=== PATIENT | female | born 1990 | race Caucasian/White ===

== ENCOUNTER 2016-09-05 13:55 | Emergency (ER) | payer OTHER ==
[2016-09-05] MEDS ORDERED: SODIUM CHLORIDE 1,000 ML IV STA (14:25)
--- NOTE | 2016-09-05 14:25 | PDOC ---
History of Present Illness - General History Source: Patient Exam Limitations: No Limitations - History of Present Illness Initial Comments: 09/05/16 15:46 The patient is a 25 year old female, with no significant past medical history, who presents to the emergency department with a possible allergic reaction. She reports that she was at the dentist's office and was getting a cleaning, when she got multiple anesthetic injections (articaine) in the lower and upper part of her mouth, for which roughly 1 minute after she started shaking. She notes that the shaking was worsening over a 5 minute period before EMS was activated. She notes that the shaking is intermittent in nature. She also notes that the shaking in her upper extremities has resolved but her lower extremities has persisted. She denies eating anything today. The patient denies chest pain, shortness of breath, headache and dizziness. Denies fever, chills, nausea, vomit, diarrhea and constipation. Denies dysuria, frequency, urgency and hematuria. Allergies: Shellfish, seasonal allergies Past surgical history: None reported Social history: No alcohol, tobacco or drug use reported <Dennis Sevilla - Last Filed: 09/05/16 15:45> - General History Source: Patient Exam Limitations: No Limitations <Soni Freitas - Last Filed: 09/05/16 16:30> - General Chief Complaint: Allergic Reaction Stated Complaint: SHAKING Time Seen by Provider: 09/05/16 14:15 Past History <Dennis Sevilla - Last Filed: 09/05/16 15:45> <Soni Freitas - Last Filed: 09/05/16 16:30> - Past Medical History Allergies/Adverse Reactions: Allergies Allergy/AdvReac Type Severity Reaction Status Date / Time No Known Drug Allergies Allergy Verified 09/05/16 16:13 steri stips Allergy Intermediate Dermatitis Uncoded 09/05/16 14:30 with Bullae seasonal Allergy Uncoded 09/05/16 14:30 shrimp Allergy mouth Uncoded 09/05/16 14:30 becomes itchy and lips swell Home Medications: Ambulatory Orders NK [No Known Home Medication] 09/05/16 Review of Systems - Review of Systems Able to Perform ROS?: Yes Comments:: 09/05/16 15:47 GENERAL/CONSTITUTIONAL: No fever or chills. No weakness. HEAD, EYES, EARS, NOSE AND THROAT: No change in vision. No ear pain or discharge. No sore throat. CARDIOVASCULAR: No chest pain or shortness of breath RESPIRATORY: No cough, wheezing, or hemoptysis. GASTROINTESTINAL: No nausea, vomiting, diarrhea or constipation. GENITOURINARY: No dysuria, frequency, or change in urination. MUSCULOSKELETAL: No joint or muscle swelling or pain. No neck or back pain. SKIN: No rash NEUROLOGIC: No headache, vertigo, loss of consciousness, or change in strength/ sensation. ENDOCRINE: No increased thirst. No abnormal weight change HEMATOLOGIC/LYMPHATIC: No anemia, easy bleeding, or history of blood clots. ALLERGIC/IMMUNOLOGIC: +Lower extremity shaking. No hives or skin allergy. <Dennis Sevilla - Last Filed: 09/05/16 15:45> *Physical Exam - Vital Signs Last Vital Signs Temp Pulse Resp BP Pulse Ox 98.1 F 78 20 133/67 100 09/05/16 14:27 09/05/16 14:27 09/05/16 14:27 09/05/16 14:27 09/05/16 14:27 - Physical Exam Comments: 09/05/16 15:47 GENERAL: Awake, alert, and fully oriented, in no acute distress HEAD: No signs of trauma, normocephalic, atraumatic EYES: PERRLA, EOMI, sclera anicteric, conjunctiva clear ENT: Auricles normal inspection, hearing grossly normal, nares patent, oropharynx clear without exudates. Moist mucosa NECK: Normal ROM, supple, no lymphadenopathy, JVD, or masses LUNGS: No distress, speaks full sentences, clear to auscultation bilaterally HEART: Regular rate and rhythm, normal S1 and S2, no murmurs, rubs or gallops, peripheral pulses normal and equal bilaterally. ABDOMEN: Soft, nontender, normoactive bowel sounds. No guarding, no rebound. No masses EXTREMITIES: Normal inspection, Normal range of motion, no edema. No clubbing or cyanosis. NEUROLOGICAL: (See MDM) SKIN: Warm, Dry, normal turgor, no rashes or lesions noted. <Dennis Sevilla - Last Filed: 09/05/16 15:45> Heart Score/ECG Review #1 ECG reviewed & interpreted by me at: 16:13 General ECG Interpretation: Sinus Rhythm, Normal Rate, Normal Intervals, No acute ischemic changes <Soni Freitas - Last Filed: 09/05/16 16:30> ED Treatment Course - LABORATORY CBC & Chemistry Diagram: 09/05/16 14:25 09/05/16 14:25 - ADDITIONAL ORDERS Additional order review: Laboratory Results 09/05/16 09/05/16 14:25 14:25 Sodium Cancelled Potassium Cancelled Chloride Cancelled Carbon Dioxide Cancelled Anion Gap Cancelled BUN Cancelled Creatinine Cancelled Creat Clearance w eGFR Cancelled Random Glucose Cancelled Calcium Cancelled Total Bilirubin Cancelled AST Cancelled ALT Cancelled Alkaline Phosphatase Cancelled Total Protein Cancelled Albumin Cancelled Serum , Qual Negative 09/05/16 14:25 RBC 5.01 MCV 87.7 MCHC 32.5 RDW 13.8 MPV 9.4 Neutrophils % 50.1 Lymphocytes % 39.6 Monocytes % 4.9 Eosinophils % 4.8 H Basophils % 0.6 <Dennis Sevilla - Last Filed: 09/05/16 15:45> - LABORATORY CBC & Chemistry Diagram: 09/05/16 14:25 09/05/16 15:26 <Soni Freitas - Last Filed: 09/05/16 16:30> Medical Decision Making - Medical Decision Making 09/05/16 14:25 A portion of this note was documented by scribe services under my direction. I have reviewed the details of the note, within reason, and agree with the documentation with the following case summary and management plan written by me. Nursing documentation reviewed and incorporated into medical decision making This is a 25 yo F who presents to the ER with a complaint of shaking She was at the dentist office today She has not had any prior exposures to dental anesthesia No rash, No pruritis No throat swelling No difficult yswallowing No nausea, vomiting, diarrhea No abdominal pain 09/05/16 15:08 Call placed to poison control "Its a local reaction, there is nothing we can tell you to do about that" Spoke with "Mp" at [phone] 09/05/16 15:17 Pt monitored in the ER with no recurrent symptoms 09/05/16 15:25 09/05/16 16:13 CMP pending 09/05/16 16:29 Laboratory Tests 09/05/16 09/05/16 14:25 15:26 WBC 7.7 Hgb 14.3 Hct 43.9 Plt Count 238 Neutrophils % 50.1 Lymphocytes % 39.6 Sodium 142 Potassium 3.8 Chloride 110 H Carbon Dioxide 24 BUN 9 Creatinine 0.7 Random Glucose 71 L 09/05/16 16:29 NO MORE TWITCHING NO COMPLAINTS Pt states she feels better Will discharge to home AVOID ARTECAINE 09/05/16 16:30 <Soni Freitas - Last Filed: 09/05/16 16:30> *DC/Admit/Observation/Transfer - Attestations Scribe Attestion: 09/05/16 15:48 Documentation prepared by Dennis Sevilla, acting as medical records director for Soni Freitas MD <Dennis Sevilla - Last Filed: 09/05/16 15:45> - Discharge Dispostion Admit: No <Soni Freitas - Last Filed: 09/05/16 16:30> Diagnosis at time of Disposition: Adverse drug reaction Qualifiers: Encounter type: initial encounter Qualified Code(s): T88.7XXA - Unspecified adverse effect of drug or medicament, initial encounter - Discharge Dispostion Disposition: HOME Condition at time of disposition: Improved - Referrals Referrals: Ted Dorman MD [Primary Care Provider] - - Patient Instructions Printed Discharge Instructions: DI for Adverse Drug Reaction -- Allergic Additional Instructions: Lucille Thank you for coming in to the ER today I am so sorry that this happened to you in the dentist office Please follow up with bog worker Return to the ER for any recurrence of symptoms Please avoid Artecaine
[2016-09-05 14:30] VITALS: TEMP 98.1; BMI 28.3
[2016-09-05 14:54] LABS: BASOPHIL 0.6 % (0-2.0); EOSINOPHIL 4.8 % (0-4.5); MCH 28.5 pg (25.7-33.7); MCHC 32.5 g/dl (32.0-36.0); MEAN CELL VOLUME 87.7 fl (80-96); MEAN PLT VOLUME 9.4 fl (7.5-11.1); NEUTROPHILS 50.1 % (42.8-82.8); PLATELET COUNT 238 K/MM3 (134-434); RDW 13.8 % (11.6-15.6); WHITE BLOOD COUNT 7.7 K/mm3 (4.0-10.0)
[2016-09-05 16:13] LABS: ALBUMIN 3.7 g/dl (3.4-5.0); ANION GAP 8 (8-16); BILIRUBIN,TOTAL 0.3 mg/dL (0.2-1.0); CALCIUM 8.4 mg/dL (8.5-10.1); CO2 24 mmol/L (21-32); CREATININE 0.7 mg/dL (0.55-1.02); GLUCOSE,RANDOM 71 mg/dL (74-106); SGOT/AST 20 U/L (15-37); SGPT/ALT 18 U/L (12-78); TOT PROT 6.8 g/dl (6.4-8.2)
[2016-09-05 16:14] LABS: ALK PHOS 42 U/L (45-117)
[2016-09-05 16:58] VITALS: BP 126/85; PULSE 89
--- NOTE | 2016-09-05 21:23 | EKG ---
Test Reason : Blood Pressure : / mmHG Vent. Rate : 082 BPM Atrial Rate : 082 BPM P-R Int : 146 ms QRS Dur : 070 ms QT Int : 368 ms P-R-T Axes : 060 084 040 degrees QTc Int : 429 ms NORMAL SINUS RHYTHM NORMAL ECG NO PREVIOUS ECGS AVAILABLE Confirmed by BETTIE DAUGHERTY MD ([id number]) on 09/05/2016 9:22:55 PM Referred By: Confirmed By:BETTIE DAUGHERTY MD
== END 2016-09-05 16:59 | disposition home or self-care (01) ==
LOC: JER 13:55
PROC: 3E0337Z Introduction of Electrolytic and Water Balance Substance into Peripheral Vein, Percutaneous Approach (ICD-10-PCS; principal; 2016-09-05)
DX: R25.8 Other abnormal involuntary movements (principal); T41.3X5A Adverse effect of local anesthetics, initial encounter; Y92.531 Health care provider office as the place of occurrence of the external cause
CPT/HCPCS: 36415; 80053; 84703; 85025; 93005; 93010; 99283-25

== ENCOUNTER 2024-07-20 01:15 | Inpatient (IN) | payer BC ==
[2024-07-20] MEDS: LACTATED RINGERS SOLUTION 1,000 ML/1,000 ML INFUS.BAG IV SCH (14:00)
[2024-07-20 14:27] VITALS: BMI 29.7
[2024-07-20 15:33] LABS: BASO % 0.4 % (0-2.0); EOS % 2.7 % (0-4.5); HEMATOCRIT 37.2 % (32.4-45.2); HEMOGLOBIN 12.4 GM/dL (10.7-15.3); MCH 30.1 pg (25.7-33.7); MCHC 33.4 g/dl (32.0-36.0); MEAN CELL VOLUME 90.1 fl (80-96); MONO % 5.7 % (3.8-10.2); NEUT % 71.2 % (42.8-82.8); PLATELET COUNT 136 10^3/uL (134-434); RBC 4.13 M/mm3 (3.60-5.2); RDW 14.3 % (11.6-15.6); WHITE BLOOD COUNT 9.5 K/mm3 (4.0-10.0)
[2024-07-20 15:39] LABS: INR 0.83 (0.83-1.09); PROTHROMBIN TIME (PATIENT) 9.6 SEC (9.7-13.0)
[2024-07-20 15:42] LABS: ACTIVATED PTT 28.2 SECONDS (25.2-36.5)
[2024-07-20 15:52] LABS: POTASSIUM 4.2 mmol/L (3.5-5.1)
[2024-07-20 15:54] LABS: BLOOD UREA NITROGEN 7.8 mg/dL (7-18); CALCIUM 8.7 mg/dL (8.5-10.1)
[2024-07-20 15:58] LABS: CREATININE 0.5 mg/dL (0.55-1.3)
[2024-07-20] MEDS: DINOPROSTONE 10 MG VAGINAL SUPPOSITORY VG ONE (16:07)
[2024-07-21] MEDS ORDERED: BUTORPHANOL TARTRATE 2 MG/ML VIAL ONE (04:27)
[2024-07-21] MEDS ORDERED: PROMETHAZINE HCL 25 MG/1 ML VIAL ONE (04:27)
[2024-07-21] MEDS: BUTORPHANOL TARTRATE 1 MG/ML VIAL IVPB ONE (05:00)
[2024-07-21] MEDS: PROMETHAZINE HCL 25 MG/1 ML VIAL IVPB PRN (05:00)
[2024-07-21] MEDS ORDERED: OXYTOCIN 30 UNITS in 0.9% NS 30 UNIT/500 ML INFUS.BAG IVPB ONE (05:28)
[2024-07-21] MEDS: OXYTOCIN 30 UNITS in 0.9% NS 30 UNIT/500 ML INFUS.BAG IVPB SCH (05:30)
[2024-07-21] MEDS ORDERED: FENTANYL/BUPIVACAINE/NS/PF - PCEA - 50 ML DISP.SYRIN EP ONE ×4 (08:09→20:12)
[2024-07-21] MEDS: FENTANYL/BUPIVACAINE/NS/PF - PCEA - 50 ML DISP.SYRIN EP SCH (08:35)
[2024-07-21] MEDS ORDERED: NALOXONE HCL 0.4 MG/ML VIAL IVPUSH PRN (09:47)
[2024-07-21] MEDS ORDERED: AMPICILLIN SODIUM 2 GM VIAL ONE (18:02)
[2024-07-21] MEDS: AMPICILLIN - 2 GM in SODIUM CHLORIDE 100 ML IVPB ONE (18:05)
[2024-07-21] MEDS: ELECTROLYTE-148 SOLN 1,000 ML IV SCH (18:07)
[2024-07-21] MEDS ORDERED: AMPICILLIN SODIUM 1 GM VIAL ONE (22:18)
[2024-07-21] MEDS: CITRIC ACID/SODIUM CITRATE 30 ML UNIT-DOSE CUP PO ONE (22:20)
[2024-07-21] MEDS ORDERED: morphine SULFATE/PF 1 MG/2 ML (2cc Syringe - QUVA) ONE (22:36)
[2024-07-21] MEDS ORDERED: LIDO 2%/EPI 1:200000 PRESRVFRE (20 ML SDVIAL) ONE (22:37)
[2024-07-21] MEDS ORDERED: PROPOFOL 20 ML ONE ×2 (22:58)
[2024-07-21] MEDS ORDERED: NITROGLYCERIN 25MG/D5W 250ML 25 MG/250 ML ML IVPB ONE (22:58)
[2024-07-21] MEDS ORDERED: SUCCINYLCHOLINE CHLORIDE 200 MG/10 ML SYRINGE ONE ×2 (23:01→23:04)
[2024-07-21] MEDS: METHYLERGONOVINE MALEATE 0.2 MG/1 ML AMP IM ONE (23:06)
[2024-07-21] MEDS ORDERED: MISOPROSTOL 200 MCG TABLET ONE (23:12)
[2024-07-21] MEDS ORDERED: MAGNESIUM SULFATE 20GM/500ML - 20 GM/500 ML INFUS.BAG IVPB SCH (23:15)
[2024-07-21] MEDS ORDERED: MIDAZOLAM HCL 2 MG/2 ML SINGLE DOSE VIAL ONE (23:18)
[2024-07-21] MEDS ORDERED: PHENYLEPHRINE HCL 10 MG/1 ML SINGLE DOSE VIAL ONE (23:25)
[2024-07-21 23:28] LABS: CORD HCO3 18.9 mmHg (20-29); CORD PCO2 73.7 mmHg (30-78); CORD pH 7.028 (7.14-7.44)
[2024-07-21 23:37] LABS: CORD HCO3 19.8 mmHg (20-29); CORD PCO2 78.8 mmHg (30-78); CORD pH 7.017 (7.14-7.44)
[2024-07-21 23:53] LABS: HEMOGLOBIN 11.9 GM/dL (10.7-15.3)
[2024-07-21 23:57] LABS: HEMATOCRIT 37.1 % (32.4-45.2); MCH 29.6 pg (25.7-33.7); MEAN CELL VOLUME 92.7 fl (80-96); MEAN PLT VOLUME 10.3 fl (7.5-11.1); PLATELET COUNT 139 10^3/uL (134-434); RDW 14.2 % (11.6-15.6); WHITE BLOOD COUNT 22.9 K/mm3 (4.0-10.0)
[2024-07-22] MEDS: MISOPROSTOL 200 MCG TABLET PR ONE (00:11)
[2024-07-22] MEDS ORDERED: ACETAMINOPHEN INJECTION 100 ML ONE ×2 (00:18→07:58)
[2024-07-22 00:22] LABS: POTASSIUM 3.5 mmol/L (3.5-5.1)
[2024-07-22 00:24] LABS: ALBUMIN 2.4 g/dl (3.4-5.0); BLOOD UREA NITROGEN 12.3 mg/dL (7-18); CALCIUM 7.7 mg/dL (8.5-10.1); INR 0.95 (0.83-1.09); PROTHROMBIN TIME (PATIENT) 10.7 SEC (9.7-13.0)
[2024-07-22 00:27] LABS: BILIRUBIN,DIRECT 0.2 mg/dL (0.0-0.2); CREATININE 1.7 mg/dL (0.55-1.3)
[2024-07-22 00:29] LABS: BILIRUBIN,TOTAL 0.4 mg/dL (0.2-1); TOT PROT 5.4 g/dl (6.4-8.2)
[2024-07-22] MEDS ORDERED: OXYTOCIN 20 UNITS in 0.9% NS 20 UNIT/1,000 ML INFUS.BAG IV ONE ×2 (00:35→08:05)
[2024-07-22] MEDS: OXYTOCIN 20 UNITS in 0.9% NS 20 UNIT/1,000 ML INFUS.BAG IV SCH ×2 (00:45→08:05)
[2024-07-22 02:58] LABS: ANISOCYTOSIS 3+; MACROCYTOSIS 0
[2024-07-22] MEDS: AMPICILLIN - 1 GM in SODIUM CHLORIDE 100 ML IVPB SCH (06:10)
[2024-07-22] MEDS: MAGNESIUM 4GM/H20 - 4 GM/100 ML IVPB IVPB ONE (06:11)
[2024-07-22] MEDS ORDERED: ONDANSETRON 4 MG/2 ML VIAL IVPB PRN (07:13)
[2024-07-22] MEDS: ACETAMINOPHEN 1000 MG/100 ML BAG IVPB PRN (08:00)
[2024-07-22 08:27] LABS: BASO % 0.3 % (0-2.0); HEMATOCRIT 34.7 % (32.4-45.2); HEMOGLOBIN 11.1 GM/dL (10.7-15.3); LYMPH % 7.2 % (8-40); MCH 29.5 pg (25.7-33.7); MEAN PLT VOLUME 10.5 fl (7.5-11.1); MONO % 4.1 % (3.8-10.2); NEUT % 88.4 % (42.8-82.8); PLATELET COUNT 132 10^3/uL (134-434); RBC 3.77 M/mm3 (3.60-5.2); RDW 14.3 % (11.6-15.6); WHITE BLOOD COUNT 19.1 K/mm3 (4.0-10.0)
[2024-07-22 08:33] LABS: EPI CELLS 16 /uL (0-25.1); HYALINE CASTS 5 /uL (0-3.1); PH,URINE 5.5 (5.0-8.0); URINE APPEARANCE CLEAR; URINE BACTERIA 9 /uL (0-1359); URINE BILIRUBIN NEGATIVE (NEGATIVE); URINE COLOR YELLOW; URINE GLUCOSE (UA) NEGATIVE (NEGATIVE); URINE KETONE 1+ (NEGATIVE); URINE LEUK ESTERASE NEGATIVE (NEGATIVE); URINE NITRITE NEGATIVE (NEGATIVE); URINE PROTEIN 1+ (NEGATIVE); URINE RBC 628 /uL (0-23.9); URINE UROBILINOGEN 0.2 mg/dL (0.2-1.0)
[2024-07-22] MEDS: ELECTROLYTE-148 SOLN 1,000 ML IV SCH (08:49)
[2024-07-22 08:53] LABS: POTASSIUM 3.5 mmol/L (3.5-5.1)
[2024-07-22 08:55] LABS: CALCIUM 7.7 mg/dL (8.5-10.1)
[2024-07-22 08:56] LABS: BLOOD UREA NITROGEN 12.2 mg/dL (7-18)
[2024-07-22 08:58] LABS: BILIRUBIN,DIRECT 0.2 mg/dL (0.0-0.2)
[2024-07-22 08:59] LABS: CREATININE 0.9 mg/dL (0.55-1.3)
[2024-07-22 09:00] LABS: BILIRUBIN,TOTAL 0.5 mg/dL (0.2-1); TOT PROT 4.8 g/dl (6.4-8.2)
[2024-07-22 10:50] LABS: URINE WBC 111 /uL (0-25.8)
[2024-07-22 12:45] LABS: PHOSPHOROUS 4.7 mg/dL (2.5-4.9)
[2024-07-22] MEDS: IBUPROFEN 800 MG/8 ML IJ IVPB PRN (16:02)
[2024-07-22] MEDS: CEFAZOLIN 2 GM/D5W 2 GM/50 ML ML IVPB SCH (18:08)
[2024-07-22] MEDS ORDERED: SODIUM CHLORIDE 500 ML IV STA (18:32)
[2024-07-22] MEDS: SENNOSIDES/DOCUSATE COMBO (SENNA PLUS) TABLET (UD) PO SCH (21:56)
[2024-07-23] MEDS: IBUPROFEN 600 MG TABLET (FP) PO PRN (01:54)
[2024-07-23] MEDS: oxyCODONE HCL 5 MG TABLET PO PRN (03:49)
[2024-07-23] MEDS: SIMETHICONE 80 MG TAB.CHEW (FP) PO PRN (03:49)
[2024-07-23] MEDS: ACETAMINOPHEN 325 MG TABLET (FP) PO PRN (05:46)
[2024-07-23] MEDS ORDERED: BISACODYL 10 MG SUPP.RECT RC PRN (07:13)
[2024-07-23 14:20] LABS: BASO % 0.2 % (0-2.0); EOS % 1.1 % (0-4.5); HEMATOCRIT 33.6 % (32.4-45.2); HEMOGLOBIN 10.8 GM/dL (10.7-15.3); LYMPH % 10.9 % (8-40); MCH 29.6 pg (25.7-33.7); MCHC 32.2 g/dl (32.0-36.0); MEAN CELL VOLUME 92.1 fl (80-96); MONO % 4.8 % (3.8-10.2); PLATELET COUNT 155 10^3/uL (134-434); RBC 3.64 M/mm3 (3.60-5.2); RDW 14.6 % (11.6-15.6); WHITE BLOOD COUNT 18.4 K/mm3 (4.0-10.0)
[2024-07-23 14:40] LABS: POTASSIUM 4.2 mmol/L (3.5-5.1)
[2024-07-23 14:43] LABS: CALCIUM 8.6 mg/dL (8.5-10.1)
[2024-07-23 14:44] LABS: ALBUMIN 2.2 g/dl (3.4-5.0); BLOOD UREA NITROGEN 10.1 mg/dL (7-18); MAGNESIUM 1.7 mg/dL (1.8-2.4)
[2024-07-23 14:47] LABS: CREATININE 0.7 mg/dL (0.55-1.3); PHOSPHOROUS 3.6 mg/dL (2.5-4.9)
[2024-07-23 14:48] LABS: BILIRUBIN,TOTAL 0.6 mg/dL (0.2-1)
[2024-07-23 14:49] LABS: TOT PROT 5.2 g/dl (6.4-8.2)
[2024-07-23] MEDS: MAGNESIUM OXIDE 400 MG TABLET (FP) PO ONE (18:10)
[2024-07-24 14:00] VITALS: BP 127/77; PULSE 70; RESP 18; TEMP 98
== END 2024-07-24 16:55 | disposition home or self-care (01) | DRG 788 ==
LOC: JLDR 01:15 → UNDOADMIN 12:49 → J3W 07-22 13:03
PROVIDERS: ADMIT Obstetrics & Gynecology; ATTEND Specialist
PROC: 10D00Z1 Extraction of Products of Conception, Low, Open Approach (ICD-10-PCS; principal; 2024-07-22)
DX: O48.0 Post-term pregnancy (principal); O76 Abnormality in fetal heart rate and rhythm complicating labor and delivery; O32.4XX0 Maternal care for high head at term, not applicable or unspecified; O77.0 Labor and delivery complicated by meconium in amniotic fluid; R56.9 Unspecified convulsions; O90.9 Complication of the puerperium, unspecified; T41.3X5A Adverse effect of local anesthetics, initial encounter; Z3A.40 40 weeks gestation of pregnancy; Z37.0 Single live birth; Y92.230 Patient room in hospital as the place of occurrence of the external cause
CPT/HCPCS: 36415; 36600; 70450-TC; 71045-TC-FY; 80048; 80053; 80076; 81003; 82803; 83615; 83735; 84100; 85025; 85610; 85730; 86780; 86850; 86900; 86901; 87086; 88307-TC; 94010; 95816; J0131